=== PATIENT | female | born 1965 | race Two or more races ===

== ENCOUNTER 2020-05-16 18:14 | Emergency (ER) | payer MEDICAID ==
[~2020-05-16] VITALS: Ht 167.6 cm; Wt 68.5 kg
[2020-05-16 18:22] VITALS: Ht 167.6 cm; Wt 68.5 kg
[2020-05-16 20:57] VITALS: BP 149/110
== END 2020-05-16 20:57 | disposition home or self-care (01) ==
LOC: ED 18:14
DX: S20.211A Contusion of right front wall of thorax, initial encounter (principal); I10 Essential (primary) hypertension; W17.89XA Other fall from one level to another, initial encounter; Y93.45 Activity, cheerleading; Y92.89 Other specified places as the place of occurrence of the external cause; Y99.8 Other external cause status
CPT/HCPCS: J1885